=== PATIENT | male | born 1960 | race Caucasian/White ===

== ENCOUNTER → 2019-04-27 | Outpatient (CLI) | payer SELFPAY ==
--- NOTE | 2019-04-27 16:19 | KCIC ---
EXAM: CT CORONARY CALCIUM SCORING. HISTORY: Coronary risk factors. Calcium scoring is requested. Dyspnea. COMPARISON: None. FINDINGS: Limited noncontrast CT of the chest was performed for coronary calcium scoring. Refer to the worksheets for full detail. Coronary calcium scoring is as follows: LMA: 0. LAD: 21. LCX: 4.5. RCA: 0. PDA: 0. Total: 25.6. The included portions of the chest reveal the following. Bone windows reveal no suspicious lesions. Images of the upper abdomen reveal no acute abnormality. There are no pathologically enlarged mediastinal lymph nodes. There is no pleural or pericardial effusion. The heart is not enlarged. The lungs are clear bilaterally. IMPRESSION: 1. Coronary calcium score 25.6. *One or more of the following individualized dose reduction techniques were utilized for this examination: 1. Automated exposure control. 2. Adjustment of the mA and/or kV according to patient size. 3. Use of iterative reconstruction technique. Electronically signed by: Davis Hernandez MD (04/27/2019 4:16 PM) [facility]
== END | disposition home or self-care (01) ==
LOC: KCIC CT 09:31
PROVIDERS: ATTEND Internal Medicine Cardiovascular Disease
DX: Z13.6 Encounter for screening for cardiovascular disorders (principal); R06.00 Dyspnea, unspecified
CPT/HCPCS: 75571

== ENCOUNTER → 2019-05-14 | Outpatient (CLI) | payer OTHER ==
--- NOTE | 2019-05-14 14:49 | CARD ---
MR#: [id number] Date of Study: 05/14/2019 Ordering Physician: TONYA FRYE, Referring Physician: TONYA FRYE, Tech: Brigida Hernandez RDCS APPROVED REPORT INDICATION Dyspnea Reason : Patient complained of pain PROCEDURE The patient underwent an Exercise Stress Test using the Kelvin Protocol. Blood pressure, heart rate, a nd EKG were monitored. An Echocardiogram was performed by automation engineering technician in four stages in quad fashion. At peak stress four se lected images were obtained and placed side by side with resting images for comparison. STRESS ECHO FINDINGS The resting Echocardiogram showed normal left ventricular systolic contractility with an estimated Ej ection Fraction of about 60 %. The Resting Echocardiogram showed normal augmentation of myocardial wall segments using a 16 segment model. Test Type: Exercise Stress Nurse/Tech: Sandra Escudero R.N. Test Indications: dyspnea Medications: none Resting ECG: sr Resting Heart Rate: 88 bpm Resting Blood Pressure: 120/50mmHg Pretest Chest Pain: No chest pain Nurse/Tech Notes lungs cta, heart tones regular Stress Symptoms No chest pain or symptoms. POST EXERCISE Reason for Termination: Reached target heart rate Target HR: Yes Max HR: 142 bpm 87% of Maximum Predicted HR: 164 bpm Exercise duration: 10:55 min:sec, 4 Stage Exercise capacity: 12.8METs Max Blood Pressure: 149/63mmHg Blood Pressure response to exercise: Normal blood pressure response during stress. Heart Rate response to exercise: normal Chest Pain: No. Arrhythmia: Yes. PVCs noted, mostly single, 1 double PVC, unifocal ST Change: Yes. Stage 3, noted ST depression in II III avf V3=6, deepened throughout remaining stage -some recovery to baseline noted during recovery phase, no chest pain RESTING ECG Rhythm: Sinus Arrhythmias: None Repolarization: Normal STRESS ECG Rhythm: Sinus Tachycardia Conduction: Normal Arrhythmias: None Moderately positive ST-Segment changes. ST-Sement Location: Inferior. Timing of ST-Segment Depression: Stress only ST-Segment Configuration: Upsloping ST-Segment Depression Amount: 3 mm Stress EKG shows changes suggestive of ischemia. RECOMMENDATIONS 1. Consider nuclear stress testing versus cardiac cath. Preliminary Notification Critical Value: No <Conclusion> 1. Good exercise capacity with 12.8 Mets achieved. 2. Abnormal EKG response with 2-[address] segment depression in the inferolateral segments. 3. Non-diagnostic stress echo images due to images being obtained at less than peak heart rate. 4. Normal resting wall motion and EF at 60%. Signed by : Tonya Frye, Electronically Approved : 05/14/2019 14:49:04
== END | disposition home or self-care (01) ==
LOC: ECHO 12:32
PROVIDERS: ATTEND Internal Medicine Cardiovascular Disease
DX: I49.3 Ventricular premature depolarization (principal)
CPT/HCPCS: 93017; 93350

== ENCOUNTER → 2019-06-08 | Outpatient (CLI) | payer OTHER ==
--- NOTE | 2019-06-12 13:57 | RESP ---
DATE OF SERVICE: 06/08/2019 ATTENDING PHYSICIAN: Tonya Frye MD The patient's FVC was 5.49, which is 101% predicted, FEV1 3.40, which is 82% predicted. The FEV1/FVC ratio was reduced. IVB52-97 was 1.76, which is 51% predicted. No bronchodilators given. Lung volume showed a total lung capacity of 148% predicted and residual volume of 260% predicted. Diffusion capacity 152% predicted. IMPRESSION: 1. Spirometry findings consistent with small airway dysfunction. 2. No bronchodilators given. 3. Lung volumes consistent with hyperinflation and air trapping. 4. Increased diffusion capacity. MIKEY GARIBAY MD DR: CONSTANCE/jasbir JOB#: [id number] / [id number] TONYA Leung MD
== END | disposition home or self-care (01) ==
LOC: PF 08:00
PROVIDERS: ATTEND Internal Medicine Cardiovascular Disease
DX: R06.00 Dyspnea, unspecified (principal)
CPT/HCPCS: 94010; 94729

== ENCOUNTER → 2020-05-15 | Outpatient (CLI) | payer OTHER ==
[~2020-05-15] MED LIST: IOHEXOL 300 MG/ML 100ML VIAL. IV ONE
--- NOTE | 2020-05-15 15:16 | KCIC ---
CT scan of the neck with contrast 05/15/2020 CLINICAL HISTORY: Right-sided neck ache for 3 months. Difficulty swallowing. TECHNIQUE: After the intravenous administration of 95 cc of Omnipaque 300, contiguous, 0.625 mm axial sections were obtained through the neck. 3 mm reconstructed sagittal, axial and coronal images were obtained. One or more of the following individualized dose reduction techniques were utilized for this study: 1. Automated exposure control. 2. Adjustment of the mA and/or kV according to patient size. 3. Use of iterative reconstruction technique. FINDINGS: The mucosal structures of the nasopharynx, oropharynx, hypopharynx and larynx are within normal limits. The parotid and submandibular glands are within normal limits. A 2.8 cm oval-shaped complex nodule is seen involving the left lobe of thyroid gland. Its CT appearance is nonspecific. No cervical lymphadenopathy is seen. Degenerative changes are seen involving the uncovertebral and facet joints scattered throughout the cervical disc spaces. IMPRESSION: 1. 2.8 cm complex nodule is seen involving the left lobe of the thyroid gland. Its CT appearance is nonspecific. It could be further evaluated by thyroid ultrasound. 2. No acute abnormality is seen. Electronically signed by: Frantz Mart MD (05/15/2020 3:13 PM) [id number]
== END | disposition home or self-care (01) ==
LOC: KCIC CT 13:51
PROVIDERS: ATTEND Family Medicine
DX: M47.892 Other spondylosis, cervical region (principal); R22.1 Localized swelling, mass and lump, neck; E04.1 Nontoxic single thyroid nodule
CPT/HCPCS: 70491; Q9967

== ENCOUNTER → 2020-05-28 | Outpatient (CLI) | payer OTHER ==
[2020-05-28 12:37] LABS: THYROID STIM HORMONE (TSH) 0.989 uIU/mL (0.358-3.74)
== END | disposition home or self-care (01) ==
LOC: LAB 11:34
PROVIDERS: ATTEND Otolaryngology
DX: E04.1 Nontoxic single thyroid nodule (principal)
CPT/HCPCS: 36415; 84439; 84443

== ENCOUNTER → 2020-06-05 | Outpatient (CLI) | payer OTHER ==
--- NOTE | 2020-06-05 10:15 | RAD ---
CLINICAL HISTORY: LT THYROID MASS COMPARISON: None available. PROCEDURE: Preliminary sonographic images of the left thyroid were obtained demonstrating a mixed solid and cystic thyroid nodule measuring up to 3.2 cm. The procedure and risks of ultrasound guided aspiration were explained to the patient and informed written consent obtained. Verification pause/timeout was observed. Laterality was confirmed. The site of aspiration was marked. Using standard sterile technique, 4 25 G fine needle aspirations of the left thyroid nodule were obtained. There were no immediate complications. IMPRESSION: Successful ultrasound-guided FNA of the left thyroid nodule. Electronically signed by: Oscar Maldonado MD (06/05/2020 10:12 AM) [facility]
--- NOTE | 2020-06-06 14:07 | PATHOLOGY ---
Note [facility] Accession Number: [id number] TESTS RESULT FLAG UNITS REF RANGE LAB Clinician Provided Cytology Information No. of containers..01 Other (Miscellaneous) Source: LEFT THYROID NODULE DIAGNOSIS: LEFT THYROID NODULE NEGATIVE FOR MALIGNANT CELLS. BETHESDA CATEGORY II. SPECIMEN CONSISTS OF BENIGN FOLLICULAR CELLS, HEMOSIDERIN-LADEN MACROPHAGES, COLLOID, AND BLOOD. THIS PATTERN IS CONSISTENT WITH A BENIGN FOLLICULAR NODULE. THIS INTERPRETATION INCLUDES EVALUATION OF A CELL BLOCK. COMMENT, This case was also reviewed by another pathologist Dr. Jose Bolaños who agrees with the above diagnosis. The material aspurated may not be in store representative. Suggest clinical correlation. Pathologist ICD10: 02 E04.1 Signed out by: Anshul Tomlinson MD, Pathologist NPI- [id number] Performed by: Eliud Yu, Instructor [employer] ([facility]) Gross description: 01 30ML, CLEAR COLORLESS, 2F 2AD 2HE /LCS 06/05/2020 1602 Local FLAG LEGEND: L-Low Normal,H-High Normal,LL-Alert Low,HH-Alert High <-Panic Low,>-Panic High,A-Abnormal,AA-Critical Abnormal Performed at: [facility] [address] [place] [address] [address] [place] [address] Masood Head MD, MARIA L [facility] [address] [address] Eladio Candelaria MD, Specimen Comment: [id number] Specimen Comment: Report sent to Performed at: [address], [place], [place] [id number] MD Masood Head MD Phone: [phone]
== END | disposition home or self-care (01) ==
LOC: US 08:23
PROVIDERS: ATTEND Otolaryngology
DX: E04.1 Nontoxic single thyroid nodule (principal)
CPT/HCPCS: 76942

== ENCOUNTER → 2020-06-30 | Outpatient (CLI) | payer OTHER ==
[2020-06-30 10:45] LABS: BASO % 1 % (0-3); EOS # 0.2 x10^3/uL (0.0-0.7); EOS % 3 % (0-3); HEMATOCRIT 46.5 % (39.0-53.0); HEMOGLOBIN 16.3 g/dL (13.0-17.5); LYMPH # 2.1 x10^3/uL (1.0-4.8); LYMPH % 35 % (24-48); MEAN CORPUSCULAR HEMOGLOBIN 31 pg (25-35); MEAN CORPUSCULAR HGB CONC 35 g/dL (31-37); MEAN CORPUSCULAR VOLUME 89 fL (79-100); MONO # 0.6 x10^3/uL (0.0-1.1); MONO % 10 % (0-9); NEUT # 2.9 x10^3/uL (1.8-7.7); NEUT % 50 % (31-73); PLATELET COUNT 176 x10^3/uL (140-400); RED BLOOD COUNT 5.22 x10^6/uL (4.30-5.70); WHITE BLOOD COUNT 5.8 x10^3/uL (4.0-11.0)
[2020-06-30 11:08] LABS: ALBUMIN 3.7 g/dL (3.4-5.0); ALBUMIN/GLOBULIN RATIO 1.1 (1.0-1.7); CALCIUM 9.2 mg/dL (8.5-10.1); CREATININE 1.3 mg/dL (0.7-1.3); GFR 56.9; POTASSIUM 4.2 mmol/L (3.5-5.1); TOTAL BILIRUBIN 0.5 mg/dL (0.2-1.0)
[2020-06-30 11:09] LABS: CHOLESTEROL/HDL RATIO 3.6
[2020-07-01 01:09] LABS: TESTOSTERONE TOTAL 550 ng/dL (264-916)
== END | disposition home or self-care (01) ==
LOC: LAB 10:07
PROVIDERS: ATTEND Family Medicine
DX: Z12.5 Encounter for screening for malignant neoplasm of prostate (principal); Z00.00 Encounter for general adult medical examination without abnormal findings; Z13.220 Encounter for screening for lipoid disorders; R53.83 Other fatigue
CPT/HCPCS: 36415; 80053; 80061; 84403; 85025; G0103